=== PATIENT | male | born 1985 | race Caucasian/White ===

== ENCOUNTER 2024-10-23 14:13 | Emergency (ER) | payer MEDICAID ==
[~2024-10-23] VITALS: Ht 188 cm; Wt 72.7 kg
[2024-10-23 14:20] VITALS: O2SAT 98
[2024-10-23 15:36] LABS: BASOPHILS % 0.6 % (0.0-2.0); EOSINOPHILS % 1.2 % (0.0-5.0); HEMATOCRIT. 46.2 % (42.0-52.0); LYMPHOCYTES % 29.4 % (20.0-50.0); MEAN CORPUSCULAR HEMOGLOBIN 29.9 pg (28.0-32.0); MEAN CORPUSCULAR HGB CONC 34.6 g/dL (31.0-37.0); MEAN CORPUSCULAR VOLUME 86.4 fL (80.0-94.0); MEAN PLATELET VOLUME 7.5 fl (7.4-10.4); MONOCYTES % 8.8 % (2.0-8.0); PLATELET 249 x1000/uL (130-400); RED BLOOD CELL COUNT 5.35 mill/uL (4.7-6.1); RED CELL DISTRIBUTION WIDTH 12.8 % (11.6-14.6); WHITE BLOOD COUNT 4.2 x1000/uL (4.5-11.0)
[2024-10-23 15:50] LABS: CARBON DIOXIDE 28 mEq/L (21-32); CHLORIDE 105 mEq/L (98-107); POTASSIUM 4.3 mEq/L (3.5-5.1); SODIUM 141 mEq/L (136-145)
[2024-10-23 15:51] LABS: CALCIUM 9.8 mg/dL (8.7-10.4)
[2024-10-23 15:55] LABS: GLUCOSE 99 mg/dL (70-105)
[2024-10-23 15:56] LABS: TROPONIN I HIGH SENSITIVITY < 4 ng/L (3.0-53); UREA NITROGEN BLOOD 13 mg/dL (9-23)
[2024-10-23 15:57] LABS: ALANINE AMINOTRANSFERASE 10 IU/L (10-49); ALBUMIN 4.8 g/dL (3.2-4.8); ASPARTATE AMINOTRANSFERASE 17 IU/L (<34)
[2024-10-23 15:58] LABS: BILIRUBIN TOTAL 0.9 mg/dL (0.1-1.0); PROTEIN TOTAL 7.7 g/dL (6.0-8.3)
[2024-10-23] MEDS ORDERED: LIDO700A30 TP (16:56)
[2024-10-23] MEDS ORDERED: IBUP-2029 MT (16:56)
[2024-10-23] MEDS ORDERED: METH-653 MT (16:56)
[2024-10-23 17:02] VITALS: BP 130/89; PULSE 60; RESP 16; TEMP 36.7; O2SAT 98
== END 2024-10-23 17:15 | disposition home or self-care (01) ==
LOC: ER 14:13
DX: S13.4XXA Sprain of ligaments of cervical spine, initial encounter (principal); X58.XXXA Exposure to other specified factors, initial encounter; Y93.89 Activity, other specified; Y92.89 Other specified places as the place of occurrence of the external cause; Y99.8 Other external cause status
CPT/HCPCS: 36415; 71045; 72040; 73030; 80053; 84484; 85025; 93005; 99285